=== PATIENT | male | born 1960 | race Caucasian/White ===

== ENCOUNTER 2020-04-03 15:06 | Inpatient (IN) | payer MEDICARE, OTHER ==
[~2020-04-03] VITALS: Ht 177.8 cm; Wt 92.5 kg
[2020-04-03] MEDS ORDERED: DIVA-78 PO (15:21)
[2020-04-03] MEDS ORDERED: TRAZ-257 PO (15:21)
[2020-04-03] MEDS ORDERED: METF-440 PO (15:21)
[2020-04-03] MEDS ORDERED: MULT-213 PO (15:21)
[2020-04-03] MEDS ORDERED: LISI-607 PO (15:21)
[2020-04-03] MEDS ORDERED: CLON0.5T PO (15:21)
[2020-04-03 15:43] LABS: *BILIRUBIN,URIN NEGATIVE (NEGATIVE); *CLARITY,URINE CLEAR (CLEAR); *COLOR,URINE YELLOW (YELLOW); *KETONES,URINE NEGATIVE (NEGATIVE); *UROBILINOGEN,URINE 0.2 E.U./dl (NORMAL); LEUKOCYTE ESTERASE ,URINE NEGATIVE (NEGATIVE); NITRITE, URINE NEGATIVE (NEGATIVE); PH,URINE 5.5 (5.0-8.0); UGLUCOSE NEGATIVE (NEGATIVE)
[2020-04-03 15:45] LABS: *BLOOD, URINE TRACE (NEGATIVE)
[2020-04-03 15:57] LABS: BASOPHILS # (AUTO) 0.1 K/uL (0.0-8.0); EOSINOPHILS # (AUTO) 0.4 K/uL (0.0-0.7); EOSINOPHILS % (AUTO) 5.6 % (0.0-7.0); HEMATOCRIT 47.1 % (36.7-47.1); HEMOGLOBIN 15.5 g/dL (12.5-16.3); LYMPHOCYTES # (AUTO) 1.9 K/uL (20.0-40.0); LYMPHOCYTES % (AUTO) 27.7 % (20.5-51.5); MEAN CORPUSCULAR HEMOGLOBIN 27.3 uug (23.8-33.4); MEAN CORPUSCULAR HGB CONC 33 g/dL (32.5-36.3); MEAN CORPUSCULAR VOLUME 83.1 fL (73.0-96.2); MONOCYTES # (AUTO) 0.4 K/uL (2.0-10.0); MONOCYTES % (AUTO) 5.9 % (0.0-11.0); NEUTROPHILS # (AUTO) 4.1 K/uL (1.8-8.9); NEUTROPHILS % (AUTO) 59.8 % (38.5-71.5); PLATELET COUNT (AUTO) 81 K/uL (152-348); RED BLOOD CELL COUNT(AUTO) 5.67 MIL/uL (4.06-5.63); WHITE BLOOD COUNT (AUTO) 6.8 K/uL (3.6-10.2)
[2020-04-03 16:06] LABS: BILIRUBIN,DIRECT 0.1 mg/dL (0.0-0.2); BILIRUBIN,TOTAL 0.3 mg/dL (0.2-1.0); CREATININE 1.1 mg/dL (0.6-1.3); POTASSIUM 3.9 mmol/L (3.5-5.1); TOTAL PROTEIN, SERUM 7.1 g/dL (6.4-8.2)
[2020-04-03] MEDS ORDERED: IV NORMAL SALINE 500 ML BAG IV ONE (17:00)
--- NOTE | 2020-04-03 19:01 | NUR ---
Assumed care of patient. no acute distress noted. VSS
[2020-04-03 19:04] LABS: BACTERIA,URINE NONE SEEN /HPF (NONE SEEN); RBC,URINE 0-3 /HPF (0-3); WBC,URINE 0-3 /HPF (0-3)
[2020-04-03 19:05] LABS: SQUAMOUS EPITHELIAL CELL,UR NONE SEEN /HPF (NONE SEEN); URINE AMORPHOUS URATE FEW /HPF
[2020-04-03] MEDS ORDERED: ACETAMINOPHEN 325 MG TABLET PO PRN (19:45)
[2020-04-03] MEDS ORDERED: hydrALAZINE HCL 25 MG TABLET PO PRN (19:45)
[2020-04-03] MEDS ORDERED: ONDANSETRON 4 MG/2 ML VIAL IV PRN (19:45)
[2020-04-03] MEDS ORDERED: DEXTROSE 50% 50 ML DISP.SYRIN IV PRN (19:45)
--- NOTE | 2020-04-03 19:59 | NUR ---
Patient admission delay due to inpatient unit still in report. cellar supervisor and charge nurse are aware.
--- NOTE | 2020-04-03 20:03 | NUR ---
Pt. admitted to Tele , under care of Dr. Hill. Belongs List completed
--- NOTE | 2020-04-03 20:30 | NUR ---
Report to Claudia CONTRERAS on Telemetry
[2020-04-03 20:46] LABS: EOSINOPHILS % (MANUAL) 7 % (0-8); LYMPHOCYTES % (MANUAL) 30 % (20-40); MONOCYTES % (MANUAL) 6 % (2-10); NEUTROPHILS % (MANUAL) 57 % (42-75)
[2020-04-03] MEDS: BLOOD SUGAR DIAGNOSTIC 1 EACH STRIP VI SCH (21:00)
--- NOTE | 2020-04-03 21:15 | NUR ---
Report received from Nurse London. Pt on the floor at 2057 via wheel chair. Admitted dx generalized weakness. Admitted to Tele, under care of Dr. Vincent. Vitals BP 182/97, HR 58, no signs of distress noted. Belongings list completed and placed in chart. Partial foot amputation noted on left foot. Skin intact. LAC 20 G intact. Will continue to monitor.
[2020-04-03 21:41] VITALS: BP 182/97
[2020-04-03] MEDS: CLONAZEPAM 0.5 MG TABLET PO SCH (21:59)
[2020-04-03] MEDS: TRAZODONE 50 MG TABLET PO SCH (22:00)
[2020-04-03] MEDS: DOCUSATE SODIUM 100 MG CAPSULE PO SCH (22:00)
[2020-04-03] MEDS: DIVALPROEX 250 MG TABLET.DR PO SCH (22:03)
[2020-04-03] MEDS: INSULIN REGULAR, HUMAN 300 UNIT/3 ML VIAL SQ PRN (22:10)
[2020-04-03 23:00] VITALS: BP 135/79
--- NOTE | 2020-04-03 23:00 | NUR ---
All due medication administered. No distress noted. Patient oriented to room. VVS BP 135/79 HR 55. Pt sinus kishor. All needs attended to. Snacks provided. Will continue to monitor.
[2020-04-04 00:13] VITALS: BP 145/75
[2020-04-04 04:51] VITALS: BP 150/83
[2020-04-04] MEDS: PANTOPRAZOLE SODIUM 40 MG TABLET.DR PO SCH (06:28)
[2020-04-04] MEDS: BLOOD SUGAR DIAGNOSTIC 1 EACH STRIP VI SCH ×4 (06:34→21:23)
[2020-04-04 07:24] LABS: THYROID STIMULATING HORMONE 6.761 mIU/mL (0.358-3.740)
--- NOTE | 2020-04-04 07:30 | NUR ---
Received patient resting in bed, awake alert and oriented times 4. Patient blood sugar is 133 will cover with insulin according to sliding scale. IV on the left AC 20 gauge hep lock. Patient also has a partial right foot amputation from previous complication with diabetes. Safety measure are in place with call light and belongings within reach. Will continue to monitor.
[2020-04-04 07:42] LABS: BILIRUBIN,TOTAL 0.6 mg/dL (0.2-1.0); CREATININE 1.2 mg/dL (0.6-1.3); MAGNESIUM 1.9 mg/dL (1.8-2.4); PHOSPHOROUS 4.8 mg/dL (2.5-4.9); POTASSIUM 4.2 mmol/L (3.5-5.1); TOTAL PROTEIN, SERUM 6.4 g/dL (6.4-8.2)
[2020-04-04 07:44] LABS: BASOPHILS % (AUTO) 0.4 % (0.0-2.0); EOSINOPHILS # (AUTO) 0.4 K/uL (0.0-0.7); EOSINOPHILS % (AUTO) 6.2 % (0.0-7.0); HEMATOCRIT 43.3 % (36.7-47.1); LYMPHOCYTES # (AUTO) 2.5 K/uL (20.0-40.0); LYMPHOCYTES % (AUTO) 35.7 % (20.5-51.5); MEAN CORPUSCULAR HEMOGLOBIN 27.1 uug (23.8-33.4); MEAN CORPUSCULAR HGB CONC 32 g/dL (32.5-36.3); MEAN CORPUSCULAR VOLUME 83.6 fL (73.0-96.2); MONOCYTES # (AUTO) 0.5 K/uL (2.0-10.0); MONOCYTES % (AUTO) 7.1 % (0.0-11.0); NEUTROPHILS # (AUTO) 3.5 K/uL (1.8-8.9); NEUTROPHILS % (AUTO) 50.6 % (38.5-71.5); PLATELET COUNT (AUTO) 78 K/uL (152-348); RED BLOOD CELL COUNT(AUTO) 5.19 MIL/uL (4.06-5.63); WHITE BLOOD COUNT (AUTO) 6.9 K/uL (3.6-10.2)
[2020-04-04 08:26] VITALS: BP 165/90
[2020-04-04] MEDS: FUROSEMIDE 20 MG/2 ML VIAL IV SCH (08:36)
[2020-04-04] MEDS: METFORMIN HCL 500 MG TABLET PO SCH ×2 (08:37→17:17)
[2020-04-04] MEDS: MULTIVITAMINS,THERAPEUTIC TABLET PO SCH (08:37)
[2020-04-04] MEDS: DIVALPROEX 250 MG TABLET.DR PO SCH ×2 (08:37→17:17)
[2020-04-04] MEDS: LISINOPRIL 5 MG TABLET PO SCH (08:37)
[2020-04-04] MEDS: INSULIN REGULAR, HUMAN 300 UNIT/3 ML VIAL SQ PRN ×3 (08:41→17:19)
--- NOTE | 2020-04-04 12:33 | NUR ---
Parul from radiology just reported that the patient has a thrombus in his left ventrivle Addendum: 04/04/20 at 1235 by PRAVEENA SIMMS RN Aramis from radiology reported that patient has a thrombus in left ventricle. He did confirm that he reported it to the waste chopper Dr Marks. Will continue to monitor.
--- NOTE | 2020-04-04 13:11 | NUR ---
Got order from Dr Marks for Lovenox 1mg/kg BID.
--- NOTE | 2020-04-04 13:32 | NUR ---
Pharmacy called to clarify order for Lovenox for patient, upon further review the patient platelet count is 74. Made Dr Marks aware and is awaiting his response. Will continue to monitor.
--- NOTE | 2020-04-04 13:46 | NUR ---
Dr Marks instructions are to hold on the Lovenox until he is able to view the patients echo. Will continue to monitor
[2020-04-04 16:12] VITALS: BP 147/80
--- NOTE | 2020-04-04 19:28 | NUR ---
Patient is resting comfortably in bed. All medications given as ordered. report given to oncoming nurse.
[2020-04-04 20:42] VITALS: BP 131/74
[2020-04-04] MEDS ORDERED: ATORVASTATIN 10 MG TABLET PO SCH (21:00)
[2020-04-04] MEDS: DOCUSATE SODIUM 100 MG CAPSULE PO SCH (21:19)
[2020-04-04] MEDS: TRAZODONE 50 MG TABLET PO SCH (21:20)
[2020-04-04] MEDS: CLONAZEPAM 0.5 MG TABLET PO SCH (21:20)
--- NOTE | 2020-04-04 22:00 | NUR ---
Received patient resting in bed, AXOx4. No signs of distress noted. Denies any pain. Patient blood sugar is 125, no coverage. All due medication administered. VVS. Safety measure are in place with call light and belongings within reach. Will continue to monitor.
[2020-04-05 00:33] VITALS: BP 134/75
[2020-04-05 04:38] VITALS: BP_SYST 122; BP_SYST 175; BP_DIAS 57; BP_DIAS 71
[2020-04-05] MEDS: PANTOPRAZOLE SODIUM 40 MG TABLET.DR PO SCH (06:44)
[2020-04-05] MEDS: BLOOD SUGAR DIAGNOSTIC 1 EACH STRIP VI SCH ×3 (06:44→16:58)
[2020-04-05] MEDS: LEVOTHYROXINE SODIUM 25 MCG TABLET PO SCH (06:44)
[2020-04-05] MEDS: METFORMIN HCL 500 MG TABLET PO SCH ×2 (07:55→17:04)
[2020-04-05] MEDS: LISINOPRIL 5 MG TABLET PO SCH (08:07)
[2020-04-05] MEDS: DIVALPROEX 250 MG TABLET.DR PO SCH ×2 (08:07→16:55)
[2020-04-05] MEDS: MULTIVITAMINS,THERAPEUTIC TABLET PO SCH (08:07)
[2020-04-05] MEDS: FUROSEMIDE 20 MG/2 ML VIAL IV SCH (08:07)
[2020-04-05 08:18] VITALS: BP 143/89
[2020-04-05] MEDS: ASPIRIN 81 MG TAB.CHEW PO SCH (09:46)
[2020-04-05] MEDS: glipiZIDE 5 MG TABLET PO SCH ×2 (09:47→16:56)
[2020-04-05] MEDS: ENOXAPARIN SODIUM 100 MG/ML DISP.SYRIN SQ SCH (09:48)
[2020-04-05 10:03] LABS: BASOPHILS % (AUTO) 0.3 % (0.0-2.0); EOSINOPHILS # (AUTO) 0.2 K/uL (0.0-0.7); EOSINOPHILS % (AUTO) 2.7 % (0.0-7.0); HEMATOCRIT 48.9 % (36.7-47.1); LYMPHOCYTES # (AUTO) 1.9 K/uL (20.0-40.0); MEAN CORPUSCULAR HEMOGLOBIN 27.3 uug (23.8-33.4); MEAN CORPUSCULAR HGB CONC 33 g/dL (32.5-36.3); MEAN CORPUSCULAR VOLUME 83.6 fL (73.0-96.2); MONOCYTES # (AUTO) 0.3 K/uL (2.0-10.0); NEUTROPHILS # (AUTO) 4.7 K/uL (1.8-8.9); PLATELET COUNT (AUTO) 82 K/uL (152-348); RED BLOOD CELL COUNT(AUTO) 5.86 MIL/uL (4.06-5.63); WHITE BLOOD COUNT (AUTO) 7.1 K/uL (3.6-10.2)
[2020-04-05 10:08] LABS: CREATININE 1.4 mg/dL (0.6-1.3); POTASSIUM 3.6 mmol/L (3.5-5.1)
[2020-04-05 10:14] LABS: BILIRUBIN,TOTAL 0.7 mg/dL (0.2-1.0); TOTAL PROTEIN, SERUM 7.9 g/dL (6.4-8.2)
[2020-04-05 12:00] VITALS: BP 123/81
[2020-04-05] MEDS: INSULIN REGULAR, HUMAN 300 UNIT/3 ML VIAL SQ PRN (12:08)
[2020-04-05 16:00] VITALS: BP 142/86
--- NOTE | 2020-04-05 18:49 | NUR ---
Patient currently being picked up via ambulance. Patient opted to take his wallet and cell phone and range scientist with him along with his jogging pants. Patient in no distress at time of discharge, all needs met.
[2020-04-06] MEDS: PANTOPRAZOLE SODIUM 40 MG TABLET.DR PO SCH (07:00)
[2020-04-06] MEDS: LEVOTHYROXINE SODIUM 25 MCG TABLET PO SCH (07:00)
[2020-04-06] MEDS: BLOOD SUGAR DIAGNOSTIC 1 EACH STRIP VI SCH ×5 (07:30→21:00)
[2020-04-06] MEDS: glipiZIDE 5 MG TABLET PO SCH ×2 (07:30→21:24)
[2020-04-06] MEDS: METFORMIN HCL 500 MG TABLET PO SCH ×2 (08:00→21:06)
[2020-04-06] MEDS: DIVALPROEX 250 MG TABLET.DR PO SCH ×2 (09:00→21:24)
[2020-04-06] MEDS: MULTIVITAMINS,THERAPEUTIC TABLET PO SCH (09:00)
[2020-04-06] MEDS: ASPIRIN 81 MG TAB.CHEW PO SCH (09:00)
[2020-04-06] MEDS: LISINOPRIL 5 MG TABLET PO SCH (09:00)
[2020-04-06 20:11] VITALS: BP 150/92
--- NOTE | 2020-04-06 20:11 | NUR ---
RECEIVED PT FROM [facility], AWAKE, ALERT & ORIENTED X4. TR BAND INTACT ON R WRIST NO BLEEDING NOTED. MEDLINE INTACT ON RAC 2 PORTS ARE PATENT. C-SCOPE SR-SB. ON RM AIR W/ O2 SAT OF 100%. NOT IN ANY DISTRESS.
[2020-04-06] MEDS: DOCUSATE SODIUM 100 MG CAPSULE PO SCH ×2 (20:40→21:00)
[2020-04-06] MEDS: ENOXAPARIN SODIUM 100 MG/ML DISP.SYRIN SQ SCH (20:40)
[2020-04-06] MEDS: ATORVASTATIN 40 MG TABLET PO SCH ×2 (20:41→21:00)
[2020-04-06] MEDS: TRAZODONE 50 MG TABLET PO SCH ×2 (20:41→21:00)
[2020-04-06] MEDS: CLONAZEPAM 0.5 MG TABLET PO SCH ×2 (20:48→21:00)
[2020-04-06] MEDS: INSULIN REGULAR, HUMAN 300 UNIT/3 ML VIAL SQ PRN (20:59)
[2020-04-06 21:00] VITALS: BP 161/70
--- NOTE | 2020-04-06 21:08 | NUR ---
WILL TOLERATE GT FEEDING WITH RESIDUAL < 50 , NUTRITIONAL CONSULT ORDERED , AND SPECIAL [facility] BED ORDERED Addendum: 04/06/20 at 2108 by DANIELLE CALIX RN Amended: Links added. Addendum: 04/06/20 at 2111 by DANIELLE CALIX RN Amended: Links added.
--- NOTE | 2020-04-06 21:15 | NUR ---
C/O PAIN ON R WRIST, CALLED Kacie SALAS W/ ORDER.
[2020-04-06] MEDS: MORPHINE SULFATE 2 MG/1 ML DISP.SYRIN IM PRN (21:42)
[2020-04-06 22:00] VITALS: BP 126/73
[2020-04-06 23:00] VITALS: BP 130/76
--- NOTE | 2020-04-06 23:00 | NUR ---
PT SLEEPING AT THIS TIME. V/S STABLE. NO FURTHER BLEEDING NOTED ON R WRIST. TR BAND INTACT.
[2020-04-07] VITALS (24 sets, daily range): BP systolic 108–162; BP diastolic 44–95
--- NOTE | 2020-04-07 04:00 | NUR ---
AWAKE. V/S STABLE. VOIDED, BACK TO SLEEP . NO BLEEDING NOTED ON R WRIST.
[2020-04-07 05:27] LABS: BASOPHILS # (AUTO) 0.1 K/uL (0.0-8.0); BASOPHILS % (AUTO) 0.7 % (0.0-2.0); EOSINOPHILS # (AUTO) 0.3 K/uL (0.0-0.7); EOSINOPHILS % (AUTO) 3.4 % (0.0-7.0); HEMATOCRIT 46.3 % (36.7-47.1); HEMOGLOBIN 15.2 g/dL (12.5-16.3); LYMPHOCYTES # (AUTO) 1.8 K/uL (20.0-40.0); LYMPHOCYTES % (AUTO) 22.9 % (20.5-51.5); MEAN CORPUSCULAR HEMOGLOBIN 27.1 uug (23.8-33.4); MEAN CORPUSCULAR HGB CONC 33 g/dL (32.5-36.3); MEAN CORPUSCULAR VOLUME 82.6 fL (73.0-96.2); MONOCYTES # (AUTO) 0.5 K/uL (2.0-10.0); MONOCYTES % (AUTO) 6.8 % (0.0-11.0); NEUTROPHILS # (AUTO) 5.2 K/uL (1.8-8.9); NEUTROPHILS % (AUTO) 66.2 % (38.5-71.5); PLATELET COUNT (AUTO) 90 K/uL (152-348); WHITE BLOOD COUNT (AUTO) 7.8 K/uL (3.6-10.2)
[2020-04-07 05:38] LABS: MAGNESIUM 1.8 mg/dL (1.8-2.4); PHOSPHOROUS 4.5 mg/dL (2.5-4.9)
[2020-04-07] MEDS: PANTOPRAZOLE SODIUM 40 MG TABLET.DR PO SCH (06:21)
--- NOTE | 2020-04-07 07:00 | NUR ---
Received report from hotel night auditor nurse, patient in bed asleep, no distress noted at this time. bed in low position, side rails upx2. Patient is sinus rhythm on the monitor, oxygen saturation 98% on room air. TR band in place, no bleeding noted at this time.
[2020-04-07] MEDS: LEVOTHYROXINE SODIUM 25 MCG TABLET PO SCH (07:39)
[2020-04-07] MEDS: BLOOD SUGAR DIAGNOSTIC 1 EACH STRIP VI SCH ×4 (07:43→20:41)
[2020-04-07] MEDS: METFORMIN HCL 500 MG TABLET PO SCH ×2 (07:43→17:07)
[2020-04-07] MEDS: glipiZIDE 5 MG TABLET PO SCH ×2 (07:59→17:06)
[2020-04-07] MEDS: MULTIVITAMINS,THERAPEUTIC TABLET PO SCH (08:01)
[2020-04-07] MEDS: ASPIRIN 81 MG TAB.CHEW PO SCH (08:01)
[2020-04-07] MEDS: DIVALPROEX 250 MG TABLET.DR PO SCH ×2 (08:21→17:07)
[2020-04-07] MEDS: LISINOPRIL 5 MG TABLET PO SCH (08:21)
[2020-04-07] MEDS: MORPHINE SULFATE 2 MG/1 ML DISP.SYRIN IM PRN (08:25)
[2020-04-07 10:44] LABS: CREATININE 1.2 mg/dL (0.6-1.3); POTASSIUM 3.8 mmol/L (3.5-5.1)
[2020-04-07] MEDS: TICAGRELOR 90 MG TABLET PO SCH (17:16)
[2020-04-07] MEDS: APIXABAN 5 MG TABLET PO SCH (17:18)
--- NOTE | 2020-04-07 18:56 | NUR ---
patient has been cooperative with care, all needs met. Nutrition Professor took TR band off and no bleeding noted. Cleansed and covered with gauze and bandaid. Patient is on room air, sinus rhythm on the monitor. Patient had a BM today and tolerating meals. Bed in low position, side rails up x2. All needs met.
--- NOTE | 2020-04-07 20:00 | NUR ---
RECEIVED PT AWAKE, ALERT & ORIENTED X4. DENIES PAIN. ON RM AIR W/ O2 SAT OF 98%. 2 PORTS HEP LOCK INTACT & PATENT ON LAC. NO BLEEDING NOTED ON R WRIST. NOT IN ANY DISTRESS.
[2020-04-07] MEDS: DOCUSATE SODIUM 100 MG CAPSULE PO SCH (20:35)
[2020-04-07] MEDS: ATORVASTATIN 40 MG TABLET PO SCH (20:36)
[2020-04-07] MEDS: CLONAZEPAM 0.5 MG TABLET PO SCH (20:36)
[2020-04-07] MEDS: TRAZODONE 50 MG TABLET PO SCH (20:36)
[2020-04-07] MEDS: INSULIN REGULAR, HUMAN 300 UNIT/3 ML VIAL SQ PRN (20:43)
--- NOTE | 2020-04-07 21:35 | NUR ---
HS CARE DONE W/ ASSISTANCE. ORAL CARE BY HIMSELF. REPOSITIONED W/ ASSIST.
[2020-04-08] VITALS (24 sets, daily range): BP systolic 113–178; BP diastolic 59–107
--- NOTE | 2020-04-08 05:00 | NUR ---
PT RESTING QUITELY. V/S ATABLE.
[2020-04-08 05:23] LABS: BASOPHILS % (AUTO) 0.5 % (0.0-2.0); EOSINOPHILS # (AUTO) 0.4 K/uL (0.0-0.7); EOSINOPHILS % (AUTO) 5.5 % (0.0-7.0); HEMATOCRIT 47.4 % (36.7-47.1); HEMOGLOBIN 15.6 g/dL (12.5-16.3); LYMPHOCYTES # (AUTO) 1.9 K/uL (20.0-40.0); LYMPHOCYTES % (AUTO) 23.3 % (20.5-51.5); MEAN CORPUSCULAR HEMOGLOBIN 27.5 uug (23.8-33.4); MEAN CORPUSCULAR HGB CONC 33 g/dL (32.5-36.3); MEAN CORPUSCULAR VOLUME 83.5 fL (73.0-96.2); MONOCYTES # (AUTO) 0.6 K/uL (2.0-10.0); MONOCYTES % (AUTO) 6.9 % (0.0-11.0); NEUTROPHILS # (AUTO) 5.1 K/uL (1.8-8.9); NEUTROPHILS % (AUTO) 63.8 % (38.5-71.5); PLATELET COUNT (AUTO) 92 K/uL (152-348); RED BLOOD CELL COUNT(AUTO) 5.68 MIL/uL (4.06-5.63)
[2020-04-08 05:34] LABS: BILIRUBIN,TOTAL 0.6 mg/dL (0.2-1.0); CREATININE 1.1 mg/dL (0.6-1.3); MAGNESIUM 2.3 mg/dL (1.8-2.4); PHOSPHOROUS 4.2 mg/dL (2.5-4.9); POTASSIUM 3.8 mmol/L (3.5-5.1); TOTAL PROTEIN, SERUM 6.9 g/dL (6.4-8.2)
[2020-04-08] MEDS: LEVOTHYROXINE SODIUM 25 MCG TABLET PO SCH (06:27)
[2020-04-08] MEDS: PANTOPRAZOLE SODIUM 40 MG TABLET.DR PO SCH (06:27)
[2020-04-08] MEDS: BLOOD SUGAR DIAGNOSTIC 1 EACH STRIP VI SCH ×2 (08:22→11:37)
[2020-04-08] MEDS: METFORMIN HCL 500 MG TABLET PO SCH ×2 (08:23→17:20)
[2020-04-08] MEDS: TICAGRELOR 90 MG TABLET PO SCH ×2 (08:23→17:20)
[2020-04-08] MEDS: glipiZIDE 5 MG TABLET PO SCH ×2 (08:23→16:37)
[2020-04-08] MEDS: ASPIRIN 81 MG TAB.CHEW PO SCH (08:23)
[2020-04-08] MEDS: LISINOPRIL 5 MG TABLET PO SCH (08:24)
[2020-04-08] MEDS: DIVALPROEX 250 MG TABLET.DR PO SCH ×2 (08:24→17:20)
[2020-04-08] MEDS: MULTIVITAMINS,THERAPEUTIC TABLET PO SCH (08:24)
[2020-04-08] MEDS: APIXABAN 5 MG TABLET PO SCH ×2 (08:25→17:28)
--- NOTE | 2020-04-08 10:00 | NUR ---
Cardiology services Dr. Brown in the unit, full report given, See order history for new orders. Dr. Brown at bedside assessing patient.
--- NOTE | 2020-04-08 19:00 | NUR ---
Received patient awake and in bed watching TV. Patient is A/O x4 and independent in movement and self care. Patient denies pain at this time. Patient 98% on room air without any distress. 2 port heplock on left AC. Pressure bandage on right wrist at site of cardiac cath insertion. No bleeding noted at this time.
[2020-04-08] MEDS: DOCUSATE SODIUM 100 MG CAPSULE PO SCH (20:43)
[2020-04-08] MEDS: ATORVASTATIN 40 MG TABLET PO SCH (20:44)
[2020-04-08] MEDS: TRAZODONE 50 MG TABLET PO SCH (20:44)
[2020-04-08] MEDS: CLONAZEPAM 0.5 MG TABLET PO SCH (20:44)
[2020-04-09] VITALS (11 sets, daily range): BP systolic 121–170; BP diastolic 72–90
[2020-04-09] MEDS: LEVOTHYROXINE SODIUM 25 MCG TABLET PO SCH (06:16)
[2020-04-09] MEDS: PANTOPRAZOLE SODIUM 40 MG TABLET.DR PO SCH (06:16)
[2020-04-09] MEDS: glipiZIDE 5 MG TABLET PO SCH (08:25)
[2020-04-09] MEDS: METFORMIN HCL 500 MG TABLET PO SCH (08:26)
[2020-04-09] MEDS: TICAGRELOR 90 MG TABLET PO SCH (08:26)
[2020-04-09] MEDS: ASPIRIN 81 MG TAB.CHEW PO SCH (08:26)
[2020-04-09] MEDS: MULTIVITAMINS,THERAPEUTIC TABLET PO SCH (08:27)
[2020-04-09] MEDS: DIVALPROEX 250 MG TABLET.DR PO SCH (08:27)
[2020-04-09] MEDS: LISINOPRIL 5 MG TABLET PO SCH (08:27)
[2020-04-09] MEDS: APIXABAN 5 MG TABLET PO SCH (08:28)
--- NOTE | 2020-04-09 09:38 | NUR ---
Cardiology Services Dr. Salinas in the unit, full report given to Dr. Marks . See order history for new orders. Dr. Marks at bedside assessing patient and discussing plan of care with patient.
[2020-04-09] MEDS ORDERED: METOPROLOL SUCCINATE XL 25 MG TAB.SR.24H PO SCH (10:00)
--- NOTE | 2020-04-09 10:58 | NUR ---
04/09/20 Per hospitalist lynne planning back to SNF. F[facility]ed clinicals to [facility], confirmed with Maria Fernanda at the facilty able to accept patient back today. Patient will go to [facility]. Nurse can give report to [phone]. Address: [address] [place] [address]. Addendum: 04/09/20 at 1059 by MARVIN CALVERT CMG Amended: Links added.
[2020-04-09] MEDS ORDERED: ATOR40TA PO (12:22)
[2020-04-09] MEDS ORDERED: TICA90TA PO (12:22)
[2020-04-09] MEDS ORDERED: LEVO25TA9 PO (12:22)
[2020-04-09] MEDS ORDERED: METO-356 PO (12:22)
[2020-04-09] MEDS ORDERED: PANT40TA2 PO (12:22)
[2020-04-09] MEDS ORDERED: GLIP5TAB13 PO (12:22)
[2020-04-09] MEDS ORDERED: DOCU100C36 PO (12:22)
[2020-04-09] MEDS ORDERED: APIX5TAB PO (12:22)
[2020-04-09] MEDS ORDERED: FURO20TA4 PO (12:22)
[2020-04-09] MEDS ORDERED: ASPI-618 PO (12:22)
[2020-04-09] MEDS ORDERED: ACET325T53 PO (12:22)
--- NOTE | 2020-04-09 15:37 | NUR ---
Patient discharged to [facility], reviewed D/C instructions with patient, patient verbally understands D/C instructions. D/C IV helped patient get dressed. Report given to Chela CONTRERAS at [facility].
[2020-04-10] MEDS ORDERED: FUROSEMIDE 20 MG TABLET PO SCH (09:00)
== END 2020-04-09 15:40 | DRG 551 ==
LOC: ER 15:06 → TELE3 20:50 → CCU 04-06 20:11 → MEDSURG3 04-09 11:40
PROVIDERS: ADMIT Internal Medicine; ATTEND Internal Medicine
DX: M51.16 Intervertebral disc disorders with radiculopathy, lumbar region (principal); I50.33 Acute on chronic diastolic (congestive) heart failure; N17.0 Acute kidney failure with tubular necrosis; E87.2 Acidosis; I13.0 Hypertensive heart and chronic kidney disease with heart failure and stage 1 through stage 4 chronic kidney disease, or unspecified chronic kidney disease; D68.69 Other thrombophilia; R53.1 Weakness; G40.909 Epilepsy, unspecified, not intractable, without status epilepticus; E11.51 Type 2 diabetes mellitus with diabetic peripheral angiopathy without gangrene; N18.9 Chronic kidney disease, unspecified; M48.061 Spinal stenosis, lumbar region without neurogenic claudication; E11.22 Type 2 diabetes mellitus with diabetic chronic kidney disease; D69.6 Thrombocytopenia, unspecified; E11.65 Type 2 diabetes mellitus with hyperglycemia; F32.9 Major depressive disorder, single episode, unspecified; F41.9 Anxiety disorder, unspecified; I25.5 Ischemic cardiomyopathy; K64.9 Unspecified hemorrhoids; Z91.81 History of falling; Z87.891 Personal history of nicotine dependence; Z89.421 Acquired absence of other right toe(s); K59.00 Constipation, unspecified; Z79.84 Long term (current) use of oral hypoglycemic drugs; J44.9 Chronic obstructive pulmonary disease, unspecified; K59.09 Other constipation; I25.10 Atherosclerotic heart disease of native coronary artery without angina pectoris; I51.3 Intracardiac thrombosis, not elsewhere classified; Z87.81 Personal history of (healed) traumatic fracture; E78.5 Hyperlipidemia, unspecified; M43.16 Spondylolisthesis, lumbar region
CPT/HCPCS: 36415; 70030-TC; 70450; 71045; 72131; 80164; 83550; 83605; 83735; 83970; 84100; 84443; 85025; 85730; 87040; 87086; 93005; 93307; A4663; G0378; J1650; J1815; J1940; J2270; J3490; J7040

== ENCOUNTER 2021-11-28 11:22 | Inpatient (IN) | payer MEDICARE, OTHER ==
[~2021-11-28] VITALS: Ht 172.7 cm; Wt 105.0 kg
[~2021-11-28 11:22] MED LIST: ACET325T53 PO; APIX5TAB PO; ASPI-618 PO; ATOR40TA PO; CLON0.5T PO; DIVA-78 PO; DOCU100C36 PO; FURO20TA4 PO; GLIP5TAB13 PO; LEVO25TA9 PO; LISI-782 PO; METF-440 PO; METO-356 PO; MULT-213 PO; PANT40TA2 PO; TICA90TA PO; TRAZ-257 PO
--- NOTE | 2021-11-28 11:26 | NUR ---
DR Pearson at the bedside for MSE.
[2021-11-28 11:56] LABS: HEMATOCRIT 37.7 % (36.7-47.1); MEAN CORPUSCULAR HEMOGLOBIN 25.2 uug (23.8-33.4); MEAN CORPUSCULAR VOLUME 77.5 fL (73.0-96.2); PLATELET COUNT (AUTO) 115 K/uL (152-348)
[2021-11-28 11:59] LABS: CARBON DIOXIDE 25 mmol/L (21-32); CHLORIDE 104 mmol/L (98-107); CREATININE 1.2 mg/dL (0.6-1.3); GLUCOSE 189 mg/dL (74-106); POTASSIUM 4.1 mmol/L (3.5-5.1); UREA NITROGEN, BLOOD 23 mg/dL (7-18)
--- NOTE | 2021-11-28 13:58 | NUR ---
Patient is resting comfortably in bed with eyes closed, NAD noted at this time. Remaines on continous monitoring.
--- NOTE | 2021-11-28 16:28 | NUR ---
PT walked to the bathroom w/ steady gait, resting now.
[2021-11-28] MEDS ORDERED: MORPHINE SULFATE 2 MG/1 ML DISP.SYRIN IV PRN (17:15)
[2021-11-28] MEDS ORDERED: ACETAMINOPHEN 325 MG TABLET PO PRN (17:15)
[2021-11-28] MEDS ORDERED: INSU100V28 SQ (18:10)
[2021-11-28] MEDS ORDERED: ATOR20TA PO (18:10)
[2021-11-28] MEDS ORDERED: INSU100I26 SQ (18:10)
[2021-11-28] MEDS ORDERED: MAGN400O6 PO (18:10)
[2021-11-28] MEDS ORDERED: TICA60TA PO (18:10)
[2021-11-28] MEDS ORDERED: APIX2.5T PO (18:10)
--- NOTE | 2021-11-28 21:21 | NUR ---
Report given to Luisa CONTRERAS
[2021-11-28 21:30] VITALS: BP 150/78
--- NOTE | 2021-11-28 21:53 | NUR ---
Pt taken to room 316 via wheelchair with all belongings.
--- NOTE | 2021-11-28 21:55 | NUR ---
RECEIVED PATIENT IN UNIT. ADMITTED TO [facility] WITH CHEST PAIN DIAGNOSIS UNDER CARE OF DR. OLEG. LEUNG. PATIENT IS AMBULATORY. ATTACHED TO TELEMONITOR, SHOWING SINUS BRADYCARDIA, WITH HR OF 51BPM. ON ROOM AIR, SATURATING AT 100%. PATIENT DENIES SOB, CHEST PAIN OR DIZZINESS. INITIAL ASSESSMENT DONE. ORIENTED PATIENT TO ROOM, BED AND CALL LIGHT BUTTON. NO WOUNDS NOTED, ONLY SCARS FROM PREVIOUS SURGERIES. PATIENT BELONGINGS LIST NOTED. SAFETY MEASURES IN PLACED. CLOSELY MONITORED.
[2021-11-28] MEDS: CLONAZEPAM 0.5 MG TABLET PO SCH (22:14)
[2021-11-28] MEDS: TRAZODONE 50 MG TABLET PO SCH (22:15)
[2021-11-28] MEDS: METFORMIN HCL 500 MG TABLET PO SCH (22:21)
[2021-11-28] MEDS: DOCUSATE SODIUM 100 MG CAPSULE PO SCH (22:23)
[2021-11-29] VITALS: BP 146/70
[2021-11-29 04:24] VITALS: BP 151/81
[2021-11-29] MEDS: PANTOPRAZOLE SODIUM 40 MG TABLET.DR PO SCH (06:14)
[2021-11-29] MEDS: LEVOTHYROXINE SODIUM 25 MCG TABLET PO SCH (06:14)
[2021-11-29 06:45] LABS: MEAN CORPUSCULAR HEMOGLOBIN 25.3 uug (23.8-33.4); MEAN CORPUSCULAR VOLUME 77.2 fL (73.0-96.2); PLATELET COUNT (AUTO) 109 K/uL (152-348)
[2021-11-29] MEDS: glipiZIDE 5 MG TABLET PO SCH ×2 (06:49→17:42)
--- NOTE | 2021-11-29 06:54 | NUR ---
PATIENT SLEPT THROUGH THE NIGHT WITH NO COMPLAINTS. SINUS RHYTHM ON TELEMONITOR. PATIENT DENIES SOB, CHEST PAIN OR DIZZINESS. ALL NEEDS ATTENDED TO AND MET. SAFETY PRECAUTIONS MAINTAINED. ENDORSED TO DAY SHIFT.
[2021-11-29 07:29] LABS: THYROID STIMULATING HORMONE 4.033 mIU/mL (0.358-3.740)
[2021-11-29 07:53] LABS: BILIRUBIN,TOTAL 0.3 mg/dL (0.2-1.0); CREATININE 1.3 mg/dL (0.6-1.3); MAGNESIUM 1.6 mg/dL (1.8-2.4); PHOSPHOROUS 4.5 mg/dL (2.5-4.9); POTASSIUM 4.4 mmol/L (3.5-5.1); TOTAL PROTEIN, SERUM 6.6 g/dL (6.4-8.2)
[2021-11-29] MEDS ORDERED: Medication Not On Formulary EA (Multivitamins W-Minerals (Multivitamin With Minerals) 1 PO SCH (09:00)
[2021-11-29] MEDS ORDERED: ASPIRIN EC 81 MG TABLET.DR PO SCH (09:00)
[2021-11-29] MEDS: METFORMIN HCL 500 MG TABLET PO SCH ×2 (09:42→17:53)
[2021-11-29] MEDS: MULTIVIT, IRON, MIN NO. 8, FA TABLET PO SCH (09:42)
[2021-11-29] MEDS: DIVALPROEX 250 MG TABLET.DR PO SCH ×2 (09:43→21:41)
[2021-11-29] MEDS: TICAGRELOR 60 MG TABLET PO SCH ×2 (09:43→17:42)
[2021-11-29] MEDS: APIXABAN 2.5 MG TABLET PO SCH ×2 (09:48→17:44)
[2021-11-29] MEDS: METOPROLOL SUCCINATE XL 25 MG TAB.SR.24H PO SCH (09:48)
[2021-11-29] MEDS: LISINOPRIL 5 MG TABLET PO SCH (09:49)
[2021-11-29] MEDS ORDERED: MAGNESIUM OXIDE 400 MG TABLET PO ONE (10:00)
[2021-11-29 11:29] VITALS: BP 117/74
[2021-11-29 15:14] VITALS: BP 127/75
[2021-11-29] MEDS ORDERED: DEXTROSE 50% 50 ML DISP.SYRIN IV PRN (18:15)
[2021-11-29 20:00] VITALS: BP 125/68
[2021-11-29] MEDS: DOCUSATE SODIUM 100 MG CAPSULE PO SCH (21:00)
[2021-11-29] MEDS: CLONAZEPAM 0.5 MG TABLET PO SCH (21:41)
[2021-11-29] MEDS: TRAZODONE 50 MG TABLET PO SCH (21:42)
[2021-11-29] MEDS: INSULIN REGULAR, HUMAN 300 UNIT/3 ML VIAL SQ PRN (21:48)
[2021-11-29] MEDS: BLOOD SUGAR DIAGNOSTIC 1 EACH STRIP VI SCH (22:14)
[2021-11-29] MEDS: INSULIN GLARGINE,HUM 300 UNITS/3 ML CARTRIDGE SQ SCH (22:16)
[2021-11-30 00:32] VITALS: BP 128/73
[2021-11-30 04:00] VITALS: BP 135/80
[2021-11-30] MEDS: PANTOPRAZOLE SODIUM 40 MG TABLET.DR PO SCH (06:27)
[2021-11-30] MEDS: LEVOTHYROXINE SODIUM 25 MCG TABLET PO SCH (06:27)
[2021-11-30] MEDS: BLOOD SUGAR DIAGNOSTIC 1 EACH STRIP VI SCH ×4 (06:28→20:22)
[2021-11-30 06:49] LABS: CREATININE 1.3 mg/dL (0.6-1.3); MAGNESIUM 1.8 mg/dL (1.8-2.4); POTASSIUM 3.9 mmol/L (3.5-5.1)
[2021-11-30] MEDS: MULTIVIT, IRON, MIN NO. 8, FA TABLET PO SCH (08:20)
[2021-11-30] MEDS: glipiZIDE 5 MG TABLET PO SCH ×2 (08:20→16:43)
[2021-11-30] MEDS: FUROSEMIDE 20 MG TABLET PO SCH (08:20)
[2021-11-30] MEDS: METFORMIN HCL 500 MG TABLET PO SCH ×2 (08:20→18:07)
[2021-11-30] MEDS: DIVALPROEX 250 MG TABLET.DR PO SCH ×2 (08:20→20:20)
[2021-11-30] MEDS: LISINOPRIL 5 MG TABLET PO SCH (08:21)
[2021-11-30] MEDS: METOPROLOL SUCCINATE XL 25 MG TAB.SR.24H PO SCH (08:21)
[2021-11-30] MEDS: TICAGRELOR 60 MG TABLET PO SCH ×2 (08:24→16:44)
[2021-11-30] MEDS: APIXABAN 2.5 MG TABLET PO SCH ×2 (08:31→16:46)
[2021-11-30] MEDS: INSULIN REGULAR, HUMAN 300 UNIT/3 ML VIAL SQ PRN ×3 (08:33→20:18)
[2021-11-30 11:32] VITALS: BP 156/76
[2021-11-30 15:23] VITALS: BP 115/69
--- NOTE | 2021-11-30 18:00 | NUR ---
Patient remained in NSR and sinus kishor throughout shift, no acute discomfort.
[2021-11-30] MEDS: INSULIN GLARGINE,HUM 300 UNITS/3 ML CARTRIDGE SQ SCH (20:19)
[2021-11-30] MEDS: CLONAZEPAM 0.5 MG TABLET PO SCH (20:20)
[2021-11-30] MEDS: TRAZODONE 50 MG TABLET PO SCH (20:21)
[2021-11-30 21:00] VITALS: BP 120/68
[2021-11-30] MEDS: DOCUSATE SODIUM 100 MG CAPSULE PO SCH (21:00)
[2021-12-01 00:11] VITALS: BP 116/71
[2021-12-01 04:35] VITALS: BP 130/82
[2021-12-01] MEDS: PANTOPRAZOLE SODIUM 40 MG TABLET.DR PO SCH (06:18)
[2021-12-01] MEDS: LEVOTHYROXINE SODIUM 25 MCG TABLET PO SCH (06:18)
[2021-12-01] MEDS: BLOOD SUGAR DIAGNOSTIC 1 EACH STRIP VI SCH ×4 (08:04→20:25)
[2021-12-01] MEDS: METFORMIN HCL 500 MG TABLET PO SCH ×2 (09:32→17:14)
[2021-12-01] MEDS: DIVALPROEX 250 MG TABLET.DR PO SCH ×2 (09:32→20:29)
[2021-12-01] MEDS: MULTIVIT, IRON, MIN NO. 8, FA TABLET PO SCH (09:33)
[2021-12-01] MEDS: APIXABAN 2.5 MG TABLET PO SCH ×2 (09:33→17:16)
[2021-12-01] MEDS: METOPROLOL SUCCINATE XL 25 MG TAB.SR.24H PO SCH (09:49)
[2021-12-01] MEDS: TICAGRELOR 60 MG TABLET PO SCH ×2 (09:49→17:14)
[2021-12-01] MEDS: glipiZIDE 5 MG TABLET PO SCH ×2 (09:49→17:14)
[2021-12-01] MEDS: LISINOPRIL 5 MG TABLET PO SCH (09:50)
[2021-12-01 11:27] VITALS: BP 115/46
[2021-12-01] MEDS: INSULIN REGULAR, HUMAN 300 UNIT/3 ML VIAL SQ PRN (12:22)
[2021-12-01] MEDS ORDERED: ATOR10TA PO (13:42)
[2021-12-01 15:55] VITALS: BP 113/70
[2021-12-01 20:21] VITALS: BP 116/70
[2021-12-01] MEDS: CLONAZEPAM 0.5 MG TABLET PO SCH (20:29)
[2021-12-01] MEDS: TRAZODONE 50 MG TABLET PO SCH (20:29)
[2021-12-01] MEDS: INSULIN GLARGINE,HUM 300 UNITS/3 ML CARTRIDGE SQ SCH (20:32)
[2021-12-01] MEDS: DOCUSATE SODIUM 100 MG CAPSULE PO SCH (21:00)
[2021-12-02 00:45] VITALS: BP 136/68
[2021-12-02 04:34] VITALS: BP 107/70
[2021-12-02] MEDS: PANTOPRAZOLE SODIUM 40 MG TABLET.DR PO SCH (06:09)
[2021-12-02] MEDS: LEVOTHYROXINE SODIUM 25 MCG TABLET PO SCH (06:09)
[2021-12-02] MEDS: BLOOD SUGAR DIAGNOSTIC 1 EACH STRIP VI SCH ×2 (06:56→12:07)
[2021-12-02] MEDS: MULTIVIT, IRON, MIN NO. 8, FA TABLET PO SCH (08:40)
[2021-12-02] MEDS: FUROSEMIDE 20 MG TABLET PO SCH (08:40)
[2021-12-02] MEDS: glipiZIDE 5 MG TABLET PO SCH (08:41)
[2021-12-02] MEDS: METFORMIN HCL 500 MG TABLET PO SCH (08:41)
[2021-12-02] MEDS: LISINOPRIL 5 MG TABLET PO SCH (08:42)
[2021-12-02] MEDS: METOPROLOL SUCCINATE XL 25 MG TAB.SR.24H PO SCH (08:42)
[2021-12-02] MEDS: TICAGRELOR 60 MG TABLET PO SCH (08:43)
[2021-12-02] MEDS: APIXABAN 2.5 MG TABLET PO SCH (08:43)
[2021-12-02] MEDS: DIVALPROEX 250 MG TABLET.DR PO SCH (09:35)
--- NOTE | 2021-12-02 10:00 | NUR ---
PATIENT IS ALERT AND ORIENTED DISCHARGE PLANNING AND PATIENT IS AWARE WILL BE PICKED UP ABOUT 1200 TO [facility] PATIENT IS AWARE NO C/O AT THIS TIME
[2021-12-02 11:48] VITALS: BP 149/85
[2021-12-02] MEDS: INSULIN REGULAR, HUMAN 300 UNIT/3 ML VIAL SQ PRN (12:09)
--- NOTE | 2021-12-02 12:43 | NUR ---
CALLED THE [facility] SPOKE WITH DARLENE CONTRERAS AND REPORT GIVEN TO HER FOR CONTINUING CARE MAINLY TO STOP THE ASPIRIN AND DECREASE THE LIPITOR TO 10MG AND HE EXPRESSED UNDERSTANDING.
--- NOTE | 2021-12-02 14:00 | NUR ---
PATIENT DISCHARGED PICKED UP BY [facility] IN SATISFACTORY CONDITION WITH DISCHARGE INSTRUCTIONS AND ALL HER PERSONAL BELONGINGS IN SATISFACTORY CONDITION NOT IN DISTRESS AT THIS TIME
== END 2021-12-02 14:00 | DRG 205 ==
LOC: ER 11:22 → TELE3 21:29 → MEDSURG3 12-02 10:10
PROVIDERS: ADMIT Internal Medicine; ATTEND Internal Medicine
DX: M94.0 Chondrocostal junction syndrome [Tietze] (principal); N17.0 Acute kidney failure with tubular necrosis; I50.23 Acute on chronic systolic (congestive) heart failure; D68.59 Other primary thrombophilia; I13.0 Hypertensive heart and chronic kidney disease with heart failure and stage 1 through stage 4 chronic kidney disease, or unspecified chronic kidney disease; R07.9 Chest pain, unspecified; R06.00 Dyspnea, unspecified; E11.51 Type 2 diabetes mellitus with diabetic peripheral angiopathy without gangrene; E11.22 Type 2 diabetes mellitus with diabetic chronic kidney disease; E11.65 Type 2 diabetes mellitus with hyperglycemia; E66.9 Obesity, unspecified; F03.90 Unspecified dementia, unspecified severity, without behavioral disturbance, psychotic disturbance, mood disturbance, and anxiety; G40.909 Epilepsy, unspecified, not intractable, without status epilepticus; Z20.822 Contact with and (suspected) exposure to COVID-19; Z87.891 Personal history of nicotine dependence; Z95.5 Presence of coronary angioplasty implant and graft; R53.1 Weakness; I25.10 Atherosclerotic heart disease of native coronary artery without angina pectoris; J44.9 Chronic obstructive pulmonary disease, unspecified; I51.3 Intracardiac thrombosis, not elsewhere classified; R26.81 Unsteadiness on feet; F41.9 Anxiety disorder, unspecified; F32.9 Major depressive disorder, single episode, unspecified; Z74.09 Other reduced mobility; I48.0 Paroxysmal atrial fibrillation; I25.5 Ischemic cardiomyopathy; I08.0 Rheumatic disorders of both mitral and aortic valves; Z68.35 Body mass index [BMI] 35.0-35.9, adult; Z79.84 Long term (current) use of oral hypoglycemic drugs; Z79.4 Long term (current) use of insulin; Z79.01 Long term (current) use of anticoagulants; Z79.82 Long term (current) use of aspirin; Z91.81 History of falling; M54.10 Radiculopathy, site unspecified; E78.5 Hyperlipidemia, unspecified; I25.2 Old myocardial infarction; N18.9 Chronic kidney disease, unspecified
CPT/HCPCS: 36415; 71045; 80164; 83550; 83735; 84100; 84443; 84484; 85025; 93005; 93307; A4663; G0378; J1815; J3490